=== PATIENT | male | born 1970 | race Two or more races ===

== ENCOUNTER 2018-05-19 06:44 | Emergency (ER) | payer MEDICAID ==
[~2018-05-19] VITALS: Ht 188 cm; Wt 117.9 kg
[~2018-05-19 06:44] MED LIST: ASPI81CH43; LISI-646; METF-370
[2018-05-19] MEDS ORDERED: ASPirin 81 mg TAB PO ONE (07:00)
[2018-05-19 07:13] LABS: Basophils # (auto) 0 uL; Basophils % (auto) 0.4 % (0.0-2.0); Eosinophils # (auto) 0.1 uL; Eosinophils % (auto) 1.9 % (0.0-7.0); Hematocrit 44.5 % (41.0-53.0); Hemoglobin 15.3 g/dL (13.5-17.5); Lymphocytes # (auto) 1.8 uL; Lymphocytes % (auto) 31.2 % (10.0-50.0); Mean Corpuscular Hgb Conc. 34.5 g/dL (32.0-36.0); Mean Corpuscular Volume 87.1 fL (80.0-100.0); Monocytes # (auto) 0.4 uL; Monocytes % (auto) 7.9 % (0.0-12.0); Neutrophils # (auto) 3.3 uL; Neutrophils % (auto) 58.6 % (37.0-80.0); Nucleated Red Blood Cells % 0.2 %; Platelet Count (auto) 296 10^3/uL (140-450); Red Blood Cells 5.11 10^6/uL (4.5-5.90); Red Cell Distribution Width 13.9 % (11.8-14.3); White Blood Cell 5.7 10^3/uL (4.4-10.8)
[2018-05-19 07:32] LABS: Alanine Aminotransferase 38 U/L (16-61); Albumin 3.5 g/dL (3.4-5.0); Anion Gap 10 (5-15); Aspartate Aminotransferase 19 U/L (15-37); BUN/Creatinine Ratio 16.7; Blood Urea Nitrogen 14 mg/dL (7-18); Calcium 8.1 mg/dL (8.5-10.1); Carbon Dioxide 24 mmol/L (21-32); Chloride 102 mmol/L (98-107); GFR African American 126 mL/min; GFR Non-African American 104 mL/min; Glucose 242 mg/dL (74-106); Potassium 4.3 mmol/L (3.5-5.1); Sodium 136 mmol/L (136-145)
[2018-05-19 07:37] LABS: Alkaline Phosphatase 72 U/L (45-117); Bilirubin, Total 0.3 mg/dL (0.2-1.0); Total Protein 6.9 g/dL (6.4-8.2)
[2018-05-19 08:00] LABS: Urine Bacteria NONE SEEN /hpf (None Seen); Urine Blood Negative /uL (Negative); Urine Mucus FEW (None Seen); Urine Specific Gravity 1.024 (1.001-1.035); Urine WBC <1 /hpf (0 - 3)
[2018-05-19 08:23] LABS: Alcohol, Urine < 3.0 mg/dL (0-5); Amphetamine Screen, Urine NEGATIVE (NEGATIVE); Barbiturate Scree,Urine NEGATIVE (NEGATIVE); Benzodiazephine Screen, Urine NEGATIVE (NEGATIVE); Cannabinoid Screen, Urine POSITIVE (NEGATIVE); Cocaine Screen, Urine NEGATIVE (NEGATIVE); Opiate Scree,Urine NEGATIVE (NEGATIVE); Phencyclidine Screen, Urine NEGATIVE (NEGATIVE)
[2018-05-19 09:49] VITALS: BP 139/76
== END 2018-05-19 09:52 | disposition home or self-care (01) ==
LOC: ER 06:44
DX: R07.89 Other chest pain (principal); I10 Essential (primary) hypertension; E11.9 Type 2 diabetes mellitus without complications; M54.9 Dorsalgia, unspecified; M79.602 Pain in left arm; Z79.899 Other long term (current) drug therapy
CPT/HCPCS: 36415; 71046; 80053; 80307; 81001; 84443; 84484; 85025; 93005

== ENCOUNTER 2018-11-05 09:33 | Emergency (ER) | payer MEDICAID ==
[~2018-11-05] VITALS: Ht 188 cm; Wt 115.7 kg
[2018-11-05 10:02] VITALS: BP 125/78
[2018-11-05] MEDS ORDERED: KETOROLAC TROMETH 60MG/2ML VIAL IM ONE (11:45)
== END 2018-11-05 13:01 | disposition home or self-care (01) ==
LOC: ER 09:33
DX: S50.02XA Contusion of left elbow, initial encounter (principal); F12.10 Cannabis abuse, uncomplicated; E11.9 Type 2 diabetes mellitus without complications; I10 Essential (primary) hypertension; W01.0XXA Fall on same level from slipping, tripping and stumbling without subsequent striking against object, initial encounter; Y93.89 Activity, other specified; Y99.8 Other external cause status; Y92.89 Other specified places as the place of occurrence of the external cause
CPT/HCPCS: 73080; 99283; J1885

== ENCOUNTER 2019-04-13 07:27 | Emergency (ER) | payer MEDICAID, OTHER ==
[~2019-04-13] VITALS: Ht 188 cm; Wt 120.2 kg
[2019-04-13 07:45] VITALS: BP 125/69
[2019-04-13] MEDS ORDERED: KETOROLAC TROMETH 60MG/2ML VIAL IM ONE (08:45)
== END 2019-04-13 09:38 | disposition home or self-care (01) ==
LOC: ER 07:28
DX: N43.3 Hydrocele, unspecified (principal); N45.1 Epididymitis; E11.9 Type 2 diabetes mellitus without complications; I10 Essential (primary) hypertension; F12.10 Cannabis abuse, uncomplicated
CPT/HCPCS: 76870; 96372; 99284; J1885

== ENCOUNTER 2019-04-16 13:41 | Emergency (ER) | payer SELFPAY ==
[~2019-04-16] VITALS: Ht 188 cm; Wt 120.2 kg
[2019-04-16 14:30] VITALS: BP 149/9
[2019-04-16] MEDS ORDERED: methylPREDNISolone SOD SUCC 125 MG/2 ML VL IM ONE (15:15)
[2019-04-16] MEDS ORDERED: KETOROLAC TROMETH 60MG/2ML VIAL IM ONE (15:15)
== END 2019-04-16 15:59 | disposition home or self-care (01) ==
LOC: ER 13:53
DX: M25.562 Pain in left knee (principal); F12.10 Cannabis abuse, uncomplicated; I10 Essential (primary) hypertension; E11.9 Type 2 diabetes mellitus without complications
CPT/HCPCS: 96372; 99283; J1885; J2930

== ENCOUNTER 2019-04-21 02:37 | Emergency (ER) | payer MEDICAID ==
[~2019-04-21] VITALS: Ht 188 cm; Wt 120.2 kg
[2019-04-21 02:50] VITALS: BP 137/78
[2019-04-21] MEDS ORDERED: TRIAMCINOLONE 40MG/ML 1ML VIAL IM ONE (05:15)
== END 2019-04-21 05:28 | disposition home or self-care (01) ==
LOC: ER 02:37
DX: S83.511S Sprain of anterior cruciate ligament of right knee, sequela (principal); E11.9 Type 2 diabetes mellitus without complications; I10 Essential (primary) hypertension; F12.10 Cannabis abuse, uncomplicated; X58.XXXS Exposure to other specified factors, sequela
CPT/HCPCS: 96372; 99283; J3301

== ENCOUNTER 2019-05-03 14:55 | Emergency (ER) | payer MEDICAID ==
[~2019-05-03] VITALS: Ht 188 cm; Wt 120.2 kg
[2019-05-03 15:06] VITALS: BP 109/66
[2019-05-03] MEDS ORDERED: MEPERIDINE HCL (50 MG/ML) 1 ML VIAL IM ONE (15:45)
[2019-05-03] MEDS ORDERED: PROMETHAZINE HCL 25 MG/ML 1ML IM ONE (15:45)
[2019-05-03] MEDS ORDERED: methylPREDNISolone SOD SUCC 125 MG/2 ML VL IM ONE (15:45)
[2019-05-03] MEDS ORDERED: MEPERIDINE HCL (25 MG/ML) 1ML VIAL IM ONE (16:00)
== END 2019-05-03 16:41 | disposition home or self-care (01) ==
LOC: ER 14:59
DX: S83.511D Sprain of anterior cruciate ligament of right knee, subsequent encounter (principal); F12.90 Cannabis use, unspecified, uncomplicated; Z79.84 Long term (current) use of oral hypoglycemic drugs; Z79.899 Other long term (current) drug therapy; Z79.82 Long term (current) use of aspirin; X58.XXXD Exposure to other specified factors, subsequent encounter
CPT/HCPCS: 96372; 99283; J2175; J2550; J2930

== ENCOUNTER 2019-05-18 05:01 | Emergency (ER) | payer OTHER ==
[~2019-05-18] VITALS: Ht 188 cm; Wt 120.2 kg
[2019-05-18 06:23] VITALS: BP 114/66
[2019-05-18] MEDS: methylPREDNISolone SOD SUCC 125 MG/2 ML VL IM ONE (07:01)
[2019-05-18] MEDS: KETOROLAC TROMETH 60MG/2ML VIAL IM ONE (07:02)
== END 2019-05-18 07:21 | disposition home or self-care (01) ==
LOC: ER 05:01
DX: M25.561 Pain in right knee (principal); G89.29 Other chronic pain; E11.9 Type 2 diabetes mellitus without complications; I10 Essential (primary) hypertension; F12.90 Cannabis use, unspecified, uncomplicated; Z79.84 Long term (current) use of oral hypoglycemic drugs; Z79.82 Long term (current) use of aspirin; Z79.899 Other long term (current) drug therapy
CPT/HCPCS: 96372; 99283; J1885; J2930

== ENCOUNTER 2019-05-20 22:37 | Emergency (ER) | payer MEDICAID, OTHER ==
[~2019-05-20] VITALS: Ht 188 cm; Wt 120.2 kg
[2019-05-21 02:15] VITALS: BP 125/72
== END 2019-05-21 03:43 | disposition left against medical advice (07) ==
LOC: ER 22:50
DX: M25.561 Pain in right knee (principal); E11.9 Type 2 diabetes mellitus without complications; I10 Essential (primary) hypertension; F12.10 Cannabis abuse, uncomplicated; Z53.29 Procedure and treatment not carried out because of patient's decision for other reasons

== ENCOUNTER 2019-07-08 16:55 | Emergency (ER) | payer MEDICAID, OTHER ==
[~2019-07-08] VITALS: Ht 188 cm; Wt 113.9 kg
[2019-07-08 18:01] LABS: Basophils # (auto) 0 uL; Basophils % (auto) 0.3 % (0.0-2.0); Eosinophils # (auto) 0.1 uL; Eosinophils % (auto) 1.1 % (0.0-7.0); Hemoglobin 13.2 g/dL (13.5-17.5); Lymphocytes % (auto) 22.9 % (10.0-50.0); Monocytes # (auto) 0.6 uL; Neutrophils # (auto) 5.9 uL
[2019-07-08 18:04] LABS: Hematocrit 39.6 % (41.0-53.0); Mean Corpuscular Hemoglobin 28.6 pg (28.0-32.0); Mean Corpuscular Hgb Conc. 33.2 g/dL (32.0-36.0); Mean Corpuscular Volume 86.1 fL (80.0-100.0); Monocytes % (auto) 6.7 % (0.0-12.0); Nucleated Red Blood Cells % 0.1 %; Red Cell Distribution Width 14.4 % (11.8-14.3); White Blood Cell 8.6 10^3/uL (4.4-10.8)
[2019-07-08 18:14] LABS: Albumin 3.8 g/dL (3.4-5.0); Anion Gap 10 (5-15); Blood Urea Nitrogen 15 mg/dL (7-18); Calcium 9.1 mg/dL (8.5-10.1); Carbon Dioxide 22 mmol/L (21-32); Chloride 107 mmol/L (98-107); Glucose 148 mg/dL (74-106); Magnesium 1.8 mg/dL (1.6-2.6); Potassium 4.3 mmol/L (3.5-5.1); Sodium 139 mmol/L (136-145)
[2019-07-08 18:18] LABS: Platelet Count (auto) 481 10^3/uL (140-450)
[2019-07-08 18:20] LABS: Alanine Aminotransferase 16 U/L (16-61); Alkaline Phosphatase 84 U/L (45-117); Aspartate Aminotransferase 12 U/L (15-37); BUN/Creatinine Ratio 21.7; Bilirubin, Total 0.4 mg/dL (0.2-1.0); GFR African American 157 mL/min; GFR Non-African American 130 mL/min; Total Protein 7.9 g/dL (6.4-8.2)
[2019-07-08] MEDS ORDERED: ONDANSETRON HCL 4 MG/2 ML VIAL IV ONE (18:30)
[2019-07-08] MEDS ORDERED: MORPHINE SULFATE 4 MG/ML SYR/VIAL IV ONE (18:30)
[2019-07-08] MEDS ORDERED: HYDROmorphone HCL 2 MG/ML VL IV ONE (20:15)
[2019-07-08 20:31] VITALS: BP 127/67
== END 2019-07-08 20:44 | disposition home or self-care (01) ==
LOC: ER 17:17
DX: R07.89 Other chest pain (principal); E11.9 Type 2 diabetes mellitus without complications; I10 Essential (primary) hypertension; F12.10 Cannabis abuse, uncomplicated; R11.2 Nausea with vomiting, unspecified; R60.9 Edema, unspecified
CPT/HCPCS: 36415; 80053; 83735; 84484; 84550; 85025; 85652; 93005; 96374; 96375; 99284; J1170; J2270; J2405

== ENCOUNTER 2020-10-02 16:40 | Emergency (ER) | payer MEDICAID ==
[~2020-10-02] VITALS: Ht 188 cm; Wt 108.9 kg
[2020-10-02] MEDS: ONDANSETRON ODT 4 MG TAB PO ONE (17:25)
[2020-10-02] MEDS: HYDROcodone-ACET 10/325MG TAB PO ONE (17:25)
[2020-10-02 20:28] LABS: Basophils # (auto) 0 10 ^3/uL (0-0.2); Basophils % (auto) 0.5 % (0.0-2.0); Eosinophils # (auto) 0.1 10 ^3/uL (0-0.8); Eosinophils % (auto) 1.1 % (0.0-7.0); Hematocrit 49.9 % (41.0-53.0); Hemoglobin 16.3 g/dL (13.5-17.5); Lymphocytes # (auto) 2.4 10 ^3/uL (0.4-5.4); Lymphocytes % (auto) 32.4 % (10.0-50.0); Mean Corpuscular Hemoglobin 29.6 pg (28.0-32.0); Mean Corpuscular Hgb Conc. 32.5 g/dL (32.0-36.0); Mean Corpuscular Volume 90.9 fL (80.0-100.0); Monocytes # (auto) 0.5 10 ^3/uL (0-1.3); Monocytes % (auto) 6.3 % (0.0-12.0); Neutrophils # (auto) 4.4 10 ^3/uL (1.6-8.6); Neutrophils % (auto) 59.7 % (37.0-80.0); Nucleated Red Blood Cells % 0.1 %; Platelet Count (auto) 347 10^3/uL (140-450); White Blood Cell 7.4 10^3/uL (4.4-10.8)
[2020-10-02 20:44] LABS: Albumin 4.4 g/dL (3.4-5.0); BUN/Creatinine Ratio 23.2; Calcium 8.9 mg/dL (8.5-10.1); Potassium 4.3 mmol/L (3.5-5.1)
[2020-10-02 20:47] LABS: Bilirubin, Total 0.3 mg/dL (0.2-1.0)
[2020-10-02] MEDS: ONDANSETRON HCL 4 MG/2 ML VIAL IV ONE (21:28)
[2020-10-02] MEDS: MORPHINE SULFATE 4 MG/ML SYR/VIAL IV ONE (21:28)
[2020-10-02] MEDS ORDERED: IOHEXOL 300 MG/ML 100ML BOTTLE IJ ONE (22:10)
[2020-10-02 23:28] LABS: Urine Bacteria FEW /hpf (None Seen); Urine Blood Negative /uL (Negative); Urine Mucus FEW (None Seen); Urine Specific Gravity 1.038 (1.001-1.035); Urine WBC <1 /hpf (0 - 3)
[2020-10-02 23:43] LABS: Alcohol, Urine < 3.0 mg/dL (0-10); Amphetamine Screen, Urine NEGATIVE (NEGATIVE); Barbiturate Scree,Urine NEGATIVE (NEGATIVE); Benzodiazephine Screen, Urine NEGATIVE (NEGATIVE); Cannabinoid Screen, Urine POSITIVE (NEGATIVE); Cocaine Screen, Urine NEGATIVE (NEGATIVE); Opiate Scree,Urine POSITIVE (NEGATIVE); Phencyclidine Screen, Urine NEGATIVE (NEGATIVE)
[2020-10-02 23:50] VITALS: BP 124/74
== END 2020-10-03 00:15 | disposition home or self-care (01) ==
LOC: ER 16:40
DX: K40.90 Unilateral inguinal hernia, without obstruction or gangrene, not specified as recurrent (principal); N43.3 Hydrocele, unspecified; F12.10 Cannabis abuse, uncomplicated; E11.9 Type 2 diabetes mellitus without complications; I10 Essential (primary) hypertension
CPT/HCPCS: 36415; 74177; 76870; 80053; 80307; 81001; 85025; 96374; 96375; 99285; J2270; J2405; Q0162; Q9967